=== PATIENT | female | born 1995 | race Caucasian/White ===

== ENCOUNTER 2019-11-26 09:43 | Emergency (ER) | payer MEDICAID, OTHER ==
[~2019-11-26] VITALS: Ht 167.6 cm; Wt 79.5 kg
[2019-11-26] MEDS ORDERED: HUMIRA IM (09:51)
[2019-11-26] MEDS ORDERED: METH2.5 PO (09:51)
[2019-11-26] MEDS ORDERED: ADAL40KI IM (09:57)
[2019-11-26] MEDS ORDERED: IBUPROFEN 800 MG TABLET PO ONE (11:30)
[2019-11-26 11:56] VITALS: BP 136/89
== END 2019-11-26 12:07 | disposition home or self-care (01) ==
LOC: EMS 09:45
DX: S93.402A Sprain of unspecified ligament of left ankle, initial encounter (principal); R03.0 Elevated blood-pressure reading, without diagnosis of hypertension; X50.1XXA Overexertion from prolonged static or awkward postures, initial encounter; Y93.89 Activity, other specified; Y92.89 Other specified places as the place of occurrence of the external cause; Y99.8 Other external cause status

== ENCOUNTER 2022-08-09 00:47 | Emergency (ER) | payer OTHER ==
[~2022-08-09] VITALS: Ht 162.6 cm; Wt 104.5 kg
[~2022-08-09 00:47] MED LIST: ADAL40KI IM; METH2.5 PO
[2022-08-09] MEDS ORDERED: PERTUSS(ACELL),DIPH,TET VAC/PF 0.5 ML SYRINGE IM. ONE (01:15)
[2022-08-09] MEDS ORDERED: LIDOCAINE 1% 10 ML VIAL SQ ONE (01:15)
[2022-08-09 03:24] VITALS: BP 159/99
== END 2022-08-09 03:44 | disposition home or self-care (01) ==
LOC: EMS 00:48
DX: S81.012A Laceration without foreign body, left knee, initial encounter (principal); M19.90 Unspecified osteoarthritis, unspecified site; J45.909 Unspecified asthma, uncomplicated; I10 Essential (primary) hypertension; F12.90 Cannabis use, unspecified, uncomplicated; W05.2XXA Fall from non-moving motorized mobility scooter, initial encounter; Y93.89 Activity, other specified; Y92.89 Other specified places as the place of occurrence of the external cause; Y99.8 Other external cause status
CPT/HCPCS: 99283; 73562; 90715; 90471; 12004; J3490